=== PATIENT | male | born 1960 | race Caucasian/White ===

== ENCOUNTER → 2021-12-20 12:24 | Outpatient (BNVA) | payer OTHER, SELFPAY | PROVIDERS: PCP Internal Medicine Endocrinology, Diabetes & Metabolism; Visit Provider Physician Assistant | DX: Z12.11 Encounter for screening for malignant neoplasm of colon (principal); K64.9 Unspecified hemorrhoids | CPT/HCPCS: 99202 ==

== ENCOUNTER 2022-06-14 07:36 | Day surgery (SDC) | payer OTHER, SELFPAY ==
[2022-06-14 07:54] VITALS: BP 142/82; PULSE 57; RESP 16; TEMP 36.2; O2SAT 99; BMI 27.3
--- NOTE | 2022-06-14 08:33 | HO.ANESPROP2 ---
PMF Active Problems Active Problems: sleep apnea cardiac stent Family History Family history of problems with anesthesia: No Surgical History Surgical History (Updated 12/20/21 @ 14:49 by Alondra Willson) History of ear surgery Hx of colonoscopy History of Problems with Anesthesia: No Social History Social History (Updated 12/20/21 @ 14:46 by Alondra Willson) Alcohol intake: current Alcohol intake frequency: holidays/special occasions only Patient Tobacco Use Status: Current someday Tobacco user Tobacco use type: Cigarette Use of substances other than those prescribed or required for medical reasons: No Are you DNR?: No Advance Directives: No Advance Directives Information Provided: Yes Meds Allergies Allergy/AdvReac Type Severity Reaction Status Date / Time sildenafil Allergy Severe Unknown Verified 12/20/21 14:44 From WELLBUTRIN Allergy Unknown MADE HIM Uncoded 06/23/20 17:24 TOO FUZZY Active Medications: Current Medications Ondansetron HCl (Ondansetron Hcl 4 Mg/2 Ml Vial) 4 mg IVPUSH ONCE PRN PRN Reason: Nausea and Vomiting Home Medications Medication Instructions Recorded Confirmed Last Taken Type tadalafil 10 mg tablet mg PO 12/20/21 Unknown History Exam Exam Date and Time: June 14, 2022 0833 Height,Weight and Vital Signs: Height 5 ft 9 in Weight 83.915 kg Last Vital Signs Temp 97.1 F 06/14/22 07:54 Pulse 57 06/14/22 07:54 Resp 16 06/14/22 07:54 BP 142/82 H 06/14/22 07:54 Pulse Ox 99 06/14/22 07:54 O2 Del Method 06/14/22 07:54 Airway Mallampati Class: III TM Dist: >3cm Neck ROM: Full Loose/Missing/Broken Teeth: No Heart: rrr Lungs: clear Assessment and Plan Final Anesthetic Review Family History of Problems with Anesthesia: No History of Problems with Anesthesia: No NPO: Yes ASA Class: III Final Preanesthetic Review: No Changes in Pt Med Stat, Meds/Allgs Chart Reviewed, Consent Obtained/Reviewed and Anes Risks/Benef Reviewed Patient Risk: Intermediate Procedure Risk: Low Anesthetic Plan Anesthetic Plan: MAC: Disposition: Standard PACU
--- NOTE | 2022-06-14 08:37 | MHC.SHP ---
Pre-Procedural Eval Section A Date of Service: 06/14/22 Section B Chief Complaint: screening Relevant Family History (Specify if Yes): No Relevant Social History: Tobacco Use (occasional) Present Medications: see Short Stay Collaborative assessment Medical History: Significant History (History of ear surgery Hx of colonoscopy) History of Previous Operations: Relevant previous surgery/procedure and date(s) (cardiac stent ) Allergies: Allergies Allergy/AdvReac Type Severity Reaction Status Date / Time sildenafil Allergy Severe Unknown Verified 12/20/21 14:44 From WELLBUTRIN Allergy Unknown MADE HIM Uncoded 06/23/20 17:24 TOO FUZZY Review of Systems Sugical H&P ROS: Negative: Constitution, Cardiovascular, Respiratory, Neurological, Psychiatric, Hem-Onc, Allergic/Immunologic, Gastrointestinal, Genitourinary, Musculoskeletal, Integumentary, Endocrine and Eyes/Ears/Nose/Throat Exam Surgical H&P Exam: Normal: HEENT, Normal: Heart, Normal: Lungs, Normal: Extremities, Normal: Abdomen, Normal: Skin and Normal: Neurological Plan Diagnosis/Plan: Unchanged I have reviewed the history and physical and performed a pertinent physical examination on my patient. No changes have occurred unless specified.
--- NOTE | 2022-06-14 09:17 | W.PM.OPN ---
Operative Note Operative Note Date of Service: 06/14/22 Narrative: Operative Information Procedure Description: Colonoscopy Indication: hx of polyps Anesthesia: MAC COLONOSCOPY Instrument: Olympus variable stiffness pediatric scope 190L Colonoscopy Monitoring: Vital signs and clinical assessment, continuous EKG monitoring, Pulse oximetry, Carbon Dioxide monitoring and blood pressure monitoring were done throughout the procedure. Colon withdrawal time was 18 minutes. Procedure: The patient was placed in the left lateral decubitis position and pre-procedure medications were administered. After a digital rectal examination of the ano-rectum, the video colonoscope was inserted into the rectum and advanced through the colon to the cecum/TI. The colonoscope was slowly withdrawn in a retrograde panoramic fashion and the colon mucosa was carefully examined including a retroflexed view of the rectum. Findings and interventions are described below. Procedure Difficulty: moderate Findings: Terminal Ileum-normal Cecum:normal Ascending Colon: few diverticula seen, x1 sessile polyp 10 mm removed with cold snare Transverse Colon -normal Descending Colon: x 3 sessile polyps 8-10 mm removed with cold snare Sigmoid Colon: severe divertculosis with luminal narrowing and mucosal hypertrophy Rectum: Retroflexion with small internal hemorrhoids, grade I Anorectum - normal Colon preparation: [place] Bowel Preparation Scale Right colon; 1-2 Transverse colon: 2 Left colon; 2 (0 = Unprepared colon segment with mucosa not seen due to solid stool that cannot be cleared. 1 = Portion of mucosa of the colon segment seen, but other areas of the colon segment not well seen due to staining, residual stool and/or opaque liquid. 2 = Minor amount of residual staining, small fragments of stool and/or opaque liquid, but mucosa of colon segment seen well. 3 = Entire mucosa of colon segment seen well with no residual staining, small fragments of stool or opaque liquid) Impression and Post Procedure Diagnosis: polyps internal hemorrhoids diverticular disease Plan: High fiber diet leaflet Avoid straining at stool, epsom salts and sitz bath, anusol supps or cream Repeat Colonoscopy in 3-5 years due to polyps and fair prep right side or earlier if clinically indicated Above findings were reviewed with the patient and relevant handouts were provided if indicated.
[2022-06-14 09:20] VITALS: BP 145/74; PULSE 59; RESP 16; TEMP 36.6; O2SAT 100
[2022-06-14 09:35] VITALS: BP 139/78; PULSE 49; RESP 16; TEMP 36.1; O2SAT 98
== END 2022-06-14 10:04 | disposition home or self-care (01) ==
PROVIDERS: Visit Provider Internal Medicine Gastroenterology
PROC: 0DJD8ZZ Inspection of Lower Intestinal Tract, Via Natural or Artificial Opening Endoscopic (ICD-10-PCS; CPT 45378; principal; 2022-06-14 08:30)
DX: Z12.11 Encounter for screening for malignant neoplasm of colon (principal); D12.2 Benign neoplasm of ascending colon; K63.5 Polyp of colon; K57.30 Diverticulosis of large intestine without perforation or abscess without bleeding; K64.0 First degree hemorrhoids; G47.33 Obstructive sleep apnea (adult) (pediatric); Z79.899 Other long term (current) drug therapy; Z99.89 Dependence on other enabling machines and devices; Z88.8 Allergy status to other drugs, medicaments and biological substances; F17.210 Nicotine dependence, cigarettes, uncomplicated
CPT/HCPCS: 45385; 88305

== ENCOUNTER 2024-05-12 19:13 | Emergency (ER) | payer OTHER, SELFPAY ==
[2024-05-12 19:24] VITALS: BP 107/83; BP 110/67; PULSE 59; PULSE 65; RESP 17; TEMP 36.8; O2SAT 96; BMI 28.1
--- NOTE | 2024-05-12 19:31 | ED.GENADULT ---
HPI - General Adult General Chief complaint: Allergic Reaction Stated complaint: ALLERGC REACTION TO BEE STING Time Seen by Provider: 05/12/24 19:23 Source: patient Mode of arrival: EMS Limitations: no limitations History of Present Illness HPI narrative: This is a 64-year-old man with no reported past medical history who presents for evaluation of hives. Patient reports that he was stung by bees approximately 6:30 p.m.. Patient reports developing itchiness all over his body. He states no chest pain or difficulty breathing. He states no dysphagia. He states no abdominal pain, nausea or vomiting. He states no previous similar allergic reaction. He states he was stung by bees earlier this summer and did not have any hives like this. He states no history of anaphylaxis. He states no new medications in the last 4 weeks. He otherwise states taking no chronic prescription medications. He states no syncope, fall or trauma. EMS states providing patient with 50 mg IV Benadryl prior to arrival. Related Data Home Medications ?Medication ?Instructions ?Recorded ?Confirmed tadalafil 10 mg tablet mg PO 12/20/21 Previous Rx's ?Medication ?Instructions ?Recorded bisacodyl 5 mg tablet,delayed 10 mg (2 x 5 mg) PO ONCE 1 day #2 12/20/21 release (Dulcolax (bisacodyl)) tabs polyethylene glycol 3350 17 gram 17 g PO DAILY #30 ea 12/20/21 oral powder packet (Miralax) polyethylene glycol 3350 17 238 g PO ONCE #238 grams 12/20/21 gram/dose oral powder (Miralax) epinephrine 0.3 mg/0.3 mL 0.3 mg (0.3 mL) IM Q4H PRN 05/12/24 injection, auto-injector (EpiPen) anaphylaxis #2 ea Allergies Allergy/AdvReac Type Severity Reaction Status Date / Time sildenafil Allergy Severe Unknown Verified 05/12/24 19:26 prednisone AdvReac Abdominal Verified 05/12/24 19:26 Pain From WELLBUTRIN Allergy Unknown MADE HIM Uncoded 05/12/24 19:26 TOO FUZZY Review of Systems Review of Systems: ROS as per HPI PMFSH Past Medical History Surgical History (Updated 06/25/22 @ 11:32 by Peewee Ott) Hx of colonoscopy History of ear surgery Social History Social History (Updated 12/20/21 @ 14:46 by Alondra Willson) Alcohol intake: current Alcohol intake frequency: does not drink Patient Tobacco Use Status: Current someday Tobacco user Tobacco use type: Cigarette Smoked in Last 30 Days: No Use of substances other than those prescribed or required for medical reasons: No Advance Directives: No Advance Directives Information Provided: No Do you have a plan to hurt others: No Plan Physical Exam ED Vital Signs: Vital Signs - 24 hr 05/12/24 19:24 Temperature 98.3 F Pulse Rate 59 Respiratory Rate 17 Blood Pressure 110/67 Pulse Oximetry 96 Oxygen Delivery Method Room Air BMI result Body Mass Index 28.1 Gen: NAD, AOx3 HEENT: NCAT, EOMI, normal conjunctiva, uvula midline without edema CV: RRR Pulm: CTAB, no increased work of breathing. No wheezes GI: Soft, NTND, no rebound, guarding or rigidity Neuro: Grossly non focal Skin: Diffuse urticaria involving the bilateral upper and lower extremities as well as the anterior and posterior torso Medications Administered Discontinued Medications Generic Name Dose Route Start Last Admin Trade Name Freq PRN Reason Stop Dose Admin Sodium Chloride 500 mls @ 500 mls/hr 05/12/24 19:45 05/12/24 19:55 Ns IV 05/12/24 20:44 500 mls/hr .Q1H NIXON Administration Medical Decision Making Medical Decision Making MDM Narrative: Differential diagnosis includes, but is not limited to urticaria, allergic reaction, anaphylaxis. Lower suspicion for anaphylaxis given single organ involvement (skin) and hemodynamic instability. Patient is afebrile and hemodynamically stable on room air. Exam as above is consistent with urticaria. Otherwise, exam is reassuring with no abdominal tenderness to palpation, wheezes or swelling of the uvula. EMS initiated IV fluids which I will continue here for total 500 cc IV NS . Patient has already received 50 mg IV Benadryl. I will continue to monitor here in the ED. On re-examination, patient is well-appearing and in no acute distress. ?Patient states symptoms have not progress. There is no change to his initial exam. ?There is no indication for further emergent evaluation in this otherwise well-appearing patient as above. ?Patient is provided written and verbal instructions, educational materials, prescription for EpiPen, recommendations for outpatient follow-up, strict return precautions and teach back is performed. ?Patient states understanding and agreement with plan of care. ?Patient is discharged home in stable and improved condition. Admission/Observation Consideration of admission/observation: Escalation of care including admission/observation considered Discharge Plan Discharge Clinical Impression: Urticaria Patient Disposition: Home, Self-Care Instructions: Urticaria (ED) Additional Instructions: You were seen and evaluated in the emergency room after a bee sting. You were given IV fluids. You were treated with Benadryl. You may continue taking [id number] antihistamines. Please consider non sedating antihistamine such as Zyrtec or Claritin during the day. You may use sedating antihistamines such as Benadryl at night. Please be sure to read the label for directions on any medication you choose to use. Please use as directed. You are given a prescription for EpiPen. Please use as directed. Please be sure to pick this up tomorrow. Please always keep one with you. Please call 911 or come to the emergency room any time you have to use an EpiPen. Please follow-up with your primary care physician in the next 5-7 days. Please note that your workup is not complete and until you follow up with your primary care physician. Please return to emergency room if you develop any new or worsening symptoms including, but not limited to throat closing sensation, difficulty swallowing, abdominal pain, chest pain, nausea/vomiting or difficulty breathing. Prescriptions: New epinephrine [EpiPen] 0.3 mg/0.3 mL auto-injector 0.3 mg IM Q4H PRN (Reason: anaphylaxis) Qty: 2 0RF No Action tadalafil 10 mg tablet PO bisacodyl [Dulcolax (bisacodyl)] 5 mg tablet,delayed release (DR/EC) 10 mg PO ONCE 1 Days Qty: 2 0RF Rx Instructions: take 2 tabs at noon the day before your colonoscopy polyethylene glycol 3350 [Miralax] 17 gram/dose powder 238 g PO ONCE Qty: 238 0RF Rx Instructions: As directed by gastroenterology department at [facility] polyethylene glycol 3350 [Miralax] 17 gram powder in packet 17 g PO DAILY Qty: 30 3RF Print Language: Iranian
[2024-05-12] MEDS: 0.9 % Sodium Chloride 500 ML IV (19:55)
[2024-05-12 21:48] VITALS: BP 121/56; PULSE 56; RESP 16; TEMP 36.6; O2SAT 97
== END 2024-05-12 21:54 | disposition home or self-care (01) ==
PROVIDERS: Emergency Provider Emergency Medicine; PCP Nurse Practitioner Family
DX: L50.9 Urticaria, unspecified (principal)
CPT/HCPCS: 96360; 96361; 99284; 99285

== ENCOUNTER 2025-08-18 18:51 | Emergency (ER) | payer OTHER, SELFPAY ==
[2025-08-18 18:54] VITALS: BP 155/88; PULSE 55; RESP 18; TEMP 36.8; BMI 26.1
--- NOTE | 2025-08-18 18:57 | ED.GENADULT ---
HPI - General Adult General Chief complaint: Extremity Injury, Upper Stated complaint: swollen left 4th finger (need ring cut off) Time Seen by Provider: 08/18/25 19:18 History of Present Illness ED Provider: stephanie HPI narrative: Hand injury: On Saturday, sustained lacerations to the 3rd and 4th digits while using a router despite wearing a leather glove. Initially small bleeding cuts, later developed bumps that ?looked like ground beef.? She has been soaking/cleaning the wounds, no antibiotics or pain medications taken. Now notes swelling and tightness in the ring finger with difficulty removing her ring. Related Data Home Medications ?Medication ?Instructions ?Recorded ?Confirmed tadalafil 10 mg tablet mg PO 12/20/21 Previous Rx's ?Medication ?Instructions ?Recorded bisacodyl 5 mg tablet,delayed 10 mg (2 x 5 mg) PO ONCE 1 day #2 12/20/21 release (Dulcolax (bisacodyl)) tabs polyethylene glycol 3350 17 gram 17 g PO DAILY #30 ea 12/20/21 oral powder packet (Miralax) polyethylene glycol 3350 17 238 g PO ONCE #238 grams 12/20/21 gram/dose oral powder (Miralax) epinephrine 0.3 mg/0.3 mL 0.3 mg (0.3 mL) IM Q4H PRN 05/12/24 injection, auto-injector (EpiPen) anaphylaxis #2 ea cefadroxil 500 mg capsule 500 mg PO BID 3 days #6 caps 08/18/25 Allergies Allergy/AdvReac Type Severity Reaction Status Date / Time sildenafil Allergy Severe Unknown Verified 08/18/25 18:55 prednisone AdvReac Abdominal Verified 08/18/25 18:55 Pain From WELLBUTRIN Allergy Unknown MADE HIM Uncoded 08/18/25 18:55 TOO FUZZY PMFSH Past Medical History Surgical History (Updated 06/25/22 @ 11:32 by Peewee Ott) Hx of colonoscopy History of ear surgery Social History Social History (Updated 12/20/21 @ 14:46 by Alondra Willson) Alcohol intake: current Alcohol intake frequency: does not drink Patient Tobacco Use Status: Current someday Tobacco user Tobacco use type: Cigarette Advance Directives: Yes Advance Directives Information Provided: No Advance Directives on File: No Do you have a plan to hurt others: No Plan Physical Exam ED Exam Exam: Right Hand: Superficial healing lacerations to 3rd and 4th distal digits without purulence; mild swelling of ring finger. Ring successfully removed in ED; underlying skin intact, no obvious infection. Vital Signs: Vital Signs - 24 hr 08/18/25 18:54 08/18/25 19:17 08/18/25 20:19 Temperature 98.3 F 0 F L Pulse Rate 55 56 56 Respiratory Rate 18 18 18 Blood Pressure 155/88 H 146/66 H 146/66 H Pulse Oximetry 100 100 Oxygen Delivery Method Room Air Room Air Room Air BMI result Body Mass Index 26.1 Course Course Course Narrative: This is a Rapid Medical Examination (RME) performed by Barbara Mcarthur PA-C in triage. Full HPI, ROS, assessment and treatment plan per primary provider in the Main ED. Hx: 65 yo M here requesting removal of ring. reports lacerating his left 3rd and 4th digits on a router 5 days ago. has been soaking the lacerations in betadine at home. states the lacerations appear to be healing however left ring finger is quite swollen, he is unable to remove the ring. states his tdap is up to date. PE/vitals: multiple lacerations to distal aspects of 3rd/4th digits, surrounding erythema, no discharge. FROM intact. unable to move ring proximally past left 4th PIP. Medications Administered Discontinued Medications Generic Name Dose Route Start Last Admin Trade Name Freq PRN Reason Stop Dose Admin Cephalexin HCl 500 mg 08/18/25 20:08 08/18/25 20:16 Cephalexin 500 Mg Capsule PO 08/18/25 20:09 500 mg ONCE ONE Administration Procedures Procedure Narrative Procedure Narrative: Procedures Ring Removal ? Right Ring Finger - Indication: Progressive swelling and tightness of the right ring finger following finger laceration, with inability to remove ring and concern for potential neurovascular compromise. - Consent: Informed consent obtained from the patient after discussion of risks, benefits, and alternatives, including possible need for ring cutting. - Preparation: The affected finger was inspected for signs of infection, neurovascular compromise, and degree of swelling. Device instructions for the compression/tamponade device were reviewed, and the device was selected for initial non-destructive ring removal technique. - Anesthesia: None required; patient tolerated procedure without significant discomfort. - Technique: Compression/tamponade device applied to the right ring finger per domestic technician instructions for several cycles. The finger was monitored throughout for neurovascular status. After reduction in finger diameter, the ring was successfully removed manually without cutting. No destructive techniques were required. - Outcome: No immediate complications. The finger wound was inspected post-procedure and showed no signs of active infection. - Follow-up: A short course of oral antibiotics was prescribed for prophylaxis. Patient was given instructions for wound care and advised to monitor for signs of infection (increased redness, swelling, pain, purulent drainage). Medical Decision Making Medical Decision Making MDM Narrative: Medical Decision Making: Fingers 3 and 4 distal lacerations appear to be well healing 3 days out. . Prophylactic antibiotics for 3 days prescribed. Affective removal of the ring with digital compression device Preliminary Favored Differential Diagnosis: [ ] among additional considered etiologies Testing Interpreted Independently: ?See below for details Radiology or Lab testing Results Reviewed: ?See below for details Consults: ?See below for details Independent Historians/External Chart Reviews: ?See below for details Social Determinants of Health Impacting MDM/Planning: ?See below for details Discharge Plan Discharge Clinical Impression: Finger injury Patient Disposition: Home, Self-Care Instructions: Finger Laceration (ED) Additional Instructions: Your ring was removed after lubrication was applied and compression device shrunk the tissue of the skin. Your tetanus is up-to-date. We are going to prescribe you oral antibiotics for 3 days to prevent infection keep a close eye on your wound. Prescriptions: New cefadroxil 500 mg capsule 500 mg PO BID 3 Days Qty: 6 0RF No Action epinephrine [EpiPen] 0.3 mg/0.3 mL auto-injector 0.3 mg IM Q4H PRN (Reason: anaphylaxis) Qty: 2 0RF tadalafil 10 mg tablet PO bisacodyl [Dulcolax (bisacodyl)] 5 mg tablet,delayed release (DR/EC) 10 mg PO ONCE 1 Days Qty: 2 0RF Rx Instructions: take 2 tabs at noon the day before your colonoscopy polyethylene glycol 3350 [Miralax] 17 gram/dose powder 238 g PO ONCE Qty: 238 0RF Rx Instructions: As directed by gastroenterology department at [facility] polyethylene glycol 3350 [Miralax] 17 gram powder in packet 17 g PO DAILY Qty: 30 3RF Interventions: ED Discharge Assessment Last Done: 08/18/25 20:19 Discharge Date/Time: 08/18/25 20:20 Print Language: Italian
[2025-08-18 19:17] VITALS: BP 146/66; PULSE 56; RESP 18; O2SAT 100
--- OUTSIDE RECORDS SUMMARY | 2025-08-18 19:17 | XMS_ITS | Encounter Summary ---
Author Organization [facility] Address [address] [place] [id number] Phone Care Team Providers Care Cash Management Associate Name Role Phone Lan Souza MD Primary Care Provider [phone] Encounter Details Date Type Department Care Team (Late st Contact Info) Description 02/08/2025 Procedure Pass OR Admitting Dept - Virtual Department [address] [place] [address] Social History Tobacco Use Types Packs/Day Years Used Date Smoking Tobacco: Former Cigarettes Smokeless Tobacco: Never Comments:Quit 7 years ago (2 025) Alcohol Use Standard Drinks/Week Comments Yes 0 (1 standard drink = 0.6 oz pur e alcohol) one drink once a year Education Answer Date Recorded Are you interested in more education? Not on mabel e 02/01/2023 Are you concerned about learning? Not on file 02/01/2023 No 02/01/2023 No 02/01/2023 Digital Access Answer Date Recorded No 03/04/2023 No 03/04/2023 Reliable internet access at home? Not on file 03/04/2023 Device with a working camera? Not on file Sex and Gender Information Value Date Recorded Sex Assigned at Not on file Legal Sex Male 9:46 PM EDT Gender Identity Not on file Sexual Orientation Not on file documented as of this encounter Plan of Treatment Not on file documented as of this encounter Visit Diagnoses Not on filedocumented in this encounter Care Teams Cash Management Associate Relationship Specialty Start Date End Date Lan Souza MD [address] [place] [address] PCP - General Internal Medicine 01/15/21 documented as of this encounter Additional Source Comments The information contained in this document represents components of the legal health record. It is not the complete legal health record.[facility]
--- OUTSIDE RECORDS SUMMARY | 2025-08-18 19:17 | XMS_ITS | Clinical Summary ---
Author Organization [facility] Address [address] [facility] [address] [place] [phone] Phone Care Team Providers Care Cylinder Checker Name Role Phone Lan Souza MD Primary Care Provider [phone] Allergies Active Allergy Reactions Criticality Noted Date Comments Bee Pollen Anaphylaxis High 12/04/2024 Sildenafil Unknown 12/04/2024 Bupropion Hcl Other (See Comments) 12/04/2024 lethargic Medications multivitamin-mi nerals-lutein (CENTRUM SILVER) Tab Take 1 tablet by mouth daily. Active omeprazole (PRILOSEC) 20 MG capsule Take 20 mg by mouth daily. Active EPINEPHrine 0.3 mg/0.3 mL auto-injector Inject 0.3 mg into the muscle as needed for anaphylaxis. Active simethicone (MYLICON) 80 mg chewable tablet Take 80 mg by mouth every 6 (six) hours as needed for flatulence. Active tadalafiL (CIALIS) 10 MG tablet Take 10 mg by mouth daily as needed for erectile dysfunction. Active acetaminophen (TYLENOL) 325 mg tablet Take 2 tablets (650 mg total) by mouth every 4 (four) hours as needed for pain (specific location in comments). 02/08/2025 Active ibuprofen (ADVIL,MOTRIN) 200 MG tablet Take 2 tablets (400 mg total) by mouth every 6 (six) hours as needed for pain (specific location in comments). 02/08/2025 Active Active Problems Problem Noted Date Diagnosed Date S/P inguinal hernia repair using synthetic patch 02/23/2025 Immunizations Immunization Administration Dates Next Due COVID-19 (Pre-07/29) [employer] Vaccine, [id number], P F 12/20/2020 Social History Tobacco Use Types Packs/Day Years Used Date Smoking Tobacco: Former Cigarettes Smokeless Tobacco: Never Tobacco Cessation:Counseling Given: Not Answered Comments:Quit 7 years ago (2024) Alcohol Use Standard Drinks/Week Comments Yes 0 [...] on file Sexual Orientation Not on file Last Filed Vital Signs Vital Sign Reading Time Taken Comments Blood Pressure 112/70 02/23/2025 9:17 AM EDT Pulse 53 02/23/2025 9:17 AM EDT Temperature 36.3 C (97.3 F) 02/23/2025 9:17 AM EDT Respiratory Rate 22 02/08/2025 2:45 PM EDT Oxygen Saturation 99% 02/23/2025 9:17 AM EDT Inhaled Oxygen Concentration - - Weight 79.1 kg (174 lb 6.4 oz) 02/23/2025 9:17 A M EDT Height 175.3 cm (5' 9 ) 02/03/2025 11:05 AM EDT Body Mass Index 25.75 02/03/2025 11:05 AM EDT Plan of Treatment Health Maintenance Due Date Last Done Comments Adult Td,Tdap Booster 1962 LIPID PANEL 1962 DEPRESSION SCREENING 1974 SMOKING Hx and SMOKELESS TOBACCO SCREENING 1975 HEPATITIS C SCREENING 02/28/1980 HIV ONE-TIME SCREENING (18-6 5 YEARS) 02/28/1980 PNEUMOCOCCAL VACCINES (50+ years) (1 of 2 - PCV) 1981 SCREENING FOR DIABETES 1997 COLOGUARD 2007 COLONOSCOPY 2007 COLORECTAL CANCER SCREENING 2007 FIT TEST 2007 FOBT 2007 SIGMOIDOSCOPY 2007 VIRTUAL COLONOSCOPY 2007 ZOSTER VACCINES (1 of 2) 02/28/2012 INFLUENZA VACCINE (#1) 2025 10/12/2024 COVID-19 VACCINE (4 - 2024-2 6 season) 2025 08/17/2022, 09/22/2021, 12/20/2020 RSV VACCINE (1 - 1-dose 75+ series) 2037 HEPATITIS A VACCINES Aged Out No long er eligible based on patient's age to complete this topic HIB VACCINES Aged Out No longer eligi ble based on patient's age to complete this topic IPV VACCINES Aged Out No longer eligi ble based on patient's age to complete this topic MENINGOCOCCAL VACCINES (ACWY) Aged Out No longer eligible based on patient's age to complete this topic MENINGOCOCCAL VACCINES (B) Aged Out N o longer eligible based on patient's age to complete this topic Medical Devices Implanted Type Area Panel Cutter Device Identifier Shelf Expiration Date Model / Serial / Lot Mesh Graft 1.6x1.9in 4.1 4.8cm Lg Perfix Polypropylene Monofilament Plug Inguinal Hernia Soft Tissue Repair /2ea - [id number] Implanted:Qty: 1 on 02/08/2025 by Beckie Jacobo MD at [facility] STANDARD Left: Groin [employer] 06/03/2029 [id number] / / [id number] Screw Screw Bilateral : Heel Stent Implanted:Qty: 1 Stent Heart Insurance [facility] [place] [place] [address] [facility] [place] [address] [facility] Advance Directives For more information, please contact: [phone] (9AM - 5PM [facility], Saturday-Saturday) Documents on File Type Date Recorded 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 It is not the complete legal health record.[facility]
[2025-08-18 20:19] VITALS: BP 146/66; PULSE 56; RESP 18; TEMP -17.7; TEMP 0; O2SAT 100
== END 2025-08-18 20:20 | disposition home or self-care (01) ==
PROVIDERS: Emergency Provider Emergency Medicine
DX: S60.445A External constriction of left ring finger, initial encounter (principal); S61.215D Laceration without foreign body of left ring finger without damage to nail, subsequent encounter; S61.213D Laceration without foreign body of left middle finger without damage to nail, subsequent encounter; W49.04XA Ring or other jewelry causing external constriction, initial encounter; Y93.9 Activity, unspecified; Y92.9 Unspecified place or not applicable; Y99.9 Unspecified external cause status; W29.8XXD Contact with other powered hand tools and household machinery, subsequent encounter
CPT/HCPCS: 99283; 99284